=== PATIENT | male | born 1995 | race African-American/Black ===

== ENCOUNTER 2019-11-22 23:13 | Emergency (ER) | payer MEDICAID ==
[~2019-11-22] VITALS: Ht 175.3 cm; Wt 73.0 kg
[2019-11-23 00:10] LABS: CHLORIDE 104 mEq/L (98-107)
[2019-11-23 00:11] LABS: HEMATOCRIT. 42.4 % (42.0-52.0); HEMOGLOBIN. 14.3 g/dL (14.0-18.0); MEAN CORPUSCULAR HEMOGLOBIN 31.8 pg (28.0-32.0); MEAN CORPUSCULAR VOLUME 94.1 fL (80.0-94.0); MEAN PLATELET VOLUME 9.2 fl (7.4-10.4); PLATELET 219 x1000/uL (130-400); RED BLOOD CELL COUNT 4.51 mill/uL (4.7-6.1); RED CELL DISTRIBUTION WIDTH 12.3 % (11.6-14.6)
[2019-11-23 00:15] LABS: ETHANOL BLOOD < 10 mg/dL
[2019-11-23 00:27] LABS: PLATELET ESTIMATE NORMAL
[2019-11-23] MEDS ORDERED: SODIUM CHLORIDE 0.9% 1,000 ML IV ONE ×2 (02:51)
[2019-11-23 08:30] VITALS: BP 126/82
== END 2019-11-23 08:45 | disposition home or self-care (01) ==
LOC: ER 23:13
DX: R41.82 Altered mental status, unspecified (principal); F12.10 Cannabis abuse, uncomplicated
CPT/HCPCS: 36415; 71045; 80053; 80320; 85025; 93005; 99285; J7030; G0480